=== PATIENT | male | born 1990 | race Caucasian/White ===

== ENCOUNTER 2018-08-23 15:55 | Emergency (ER) | payer OTHER ==
[2018-08-23 16:16] VITALS: BP 117/67; PULSE 61; RESP 20; TEMP 98; O2SAT 97
--- NOTE | 2018-08-23 16:49 | C.PDOC ---
History Of Present Illness 28 year old male, with no significant past medical history, presents to the ED for evaluation of a puncture wound to his right foot which he sustained 2 hours ago. Patient states he accidentally stepped onto a nail, which punctured through his sneaker and foot. Patient is unsure of his tetanus immunization status. He denies numbness/tingling to the area or any other injuries at this time. Time Seen by Provider: 08/23/18 16:15 Chief Complaint (Nursing): Abnormal Skin Integrity History Per: Patient History/Exam Limitations: no limitations Onset/Duration Of Symptoms: Hrs Current Symptoms Are (Timing): Still Present Location Of Injury: Right: Foot Quality Of Symptoms: Painful Additional History Per: Patient Past Medical History Reviewed: Historical Data, Nursing Documentation, Vital Signs Vital Signs: Last Vital Signs Temp 98 F 08/23/18 16:04 Pulse 61 08/23/18 16:04 Resp 20 08/23/18 16:04 BP 117/67 08/23/18 16:04 Pulse Ox 97 08/23/18 16:04 - Medical History PMH: No Chronic Diseases Surgical History: No Surg Hx Family History: States: Unknown Family Hx - Social History Hx Alcohol Use: No Hx Substance Use: No - Immunization History Hx Tetanus Toxoid Vaccination: No Hx Influenza Vaccination: No Hx Pneumococcal Vaccination: No Review Of Systems Except As Marked, All Systems Reviewed And Found Negative. Constitutional: Negative for: Fever, Chills Eyes: Negative for: Vision Change Cardiovascular: Negative for: Chest Pain, Palpitations Respiratory: Negative for: Cough, Shortness of Breath Gastrointestinal: Negative for: Nausea, Vomiting Musculoskeletal: Positive for: Foot Pain (right). Negative for: Neck Pain, Shoulder Pain, Arm Pain, Back Pain, Hand Pain Skin: Positive for: Other (puncture wound right foot). Negative for: Rash, Bruising Neurological: Negative for: Weakness, Numbness Physical Exam - Physical Exam Appears: Well, Non-toxic, No Acute Distress Skin: Normal Color, Warm, Dry, Other (puncture wound to plantar aspect of right foot. no active bleeding ) Head: Atraumatic, Normacephalic Eye(s): bilateral: Normal Inspection, PERRL, EOMI Oral Mucosa: Moist Neck: Normal, Supple Cardiovascular: Rhythm Regular Respiratory: Normal Breath Sounds Extremity: Normal ROM, Tenderness (over puncture wound), Capillary Refill (less than 2 seconds ), No Deformity, No Swelling, Other (small puncture wound to plantar surface of right foot; no active bleeding) Extremity: Left: Atraumatic, Bilateral: No Pedal Edema, Normal Color And Temperature, Normal ROM Pulses: Left Dorsalis Pedis: Normal, Right Dorsalis Pedis: Normal Neurological/Psych: Oriented x3, Normal Speech, Normal Cognition, Normal Motor, Normal Sensation Gait: Steady (without assistance) ED Course And Treatment O2 Sat by Pulse Oximetry: 97 (on RA) Pulse Ox Interpretation: Normal - Other Rad Right foot XR X-Ray: Viewed By Me, Read By Radiologist Interpretation: PROCEDURE: Right foot Radiographs. HISTORY: nail puncture to bottom of foot. r/o FB. COMPARISON: None available. FINDINGS: BONES: No acute displaced fracture. JOINTS: No dislocation. SOFT TISSUES: No evidence of radiopaque foreign body. OTHER FINDINGS: None. IMPRESSION: No evidence of radiopaque foreign body. Progress Note: Right foot XR ordered and reviewed. Cipro PO, Keflex PO, and Tetanus IM administered. Medical Decision Making Medical Decision Making: Initial Plan: * Right foot XR * TDaP * Keflex * Cipro Right foot XR: negative for FB, fracture, or dislocation Wound cleaned and dressed by nursing. Plan of care discussed with patient, and strict instructions given regarding prescriptions, importance of follow up, and signs to return to Emergency Department, to include signs of wound infection, fevers, chills, worsening pain, or any other new/worsening symptoms. Patient verbalizes understanding of discussion. Patient A&Ox3, ambulating with steady gait, stable for discharge home. Disposition Counseled Patient/Family Regarding: Studies Performed, Diagnosis, Need For Followup, Rx Given - Disposition Referrals: Podiatry Clinic [Outside] Disposition: HOME/ ROUTINE Disposition Time: 17:00 Condition: IMPROVED Additional Instructions: Mantenga la herida limpia, seca y cubierta Riva Keflex cada 8 horas blair 7 sahni Riva ciprofloxacina cada 12 horas blair 7 sahni Seguimiento con el mdico de cabecera dentro de 2 sahni Volver a ER para cualquier nuevo/empeoramiento de los sntomas Prescriptions: Cephalexin [Keflex] 500 mg PO Q8H 7 Days #21 capsule Ciprofloxacin [Cipro] 500 mg PO Q12H #14 tab Instructions: Wound Care (DC) Forms: Work Excuse, Gen Discharge Inst Greenlandic, Lulu (Greenlandic) - Clinical Impression Clinical Impression: Puncture wound - PA / [employer] / Resident Statement MD/DO has reviewed & agrees with the documentation as recorded. - Scribe Statement The provider has reviewed the documentation as recorded by the Scribe (Ann Morris) All medical record entries made by the Scribe were at my direction and personally dictated by me. I have reviewed the chart and agree that the record accurately reflects my personal performance of the history, physical exam, medical decision making, and the department course for this patient. I have also personally directed, reviewed, and agree with the discharge instructions and disposition.
[2018-08-23] MEDS ORDERED: Tdap Vaccine 0.5 ml Vial (10-64 yrs) IM ONE ×2 (17:10→17:57)
--- NOTE | 2018-08-23 17:16 | RAD ---
PROCEDURE: Right foot Radiographs. HISTORY: nail puncture to bottom of foot. r/o FB COMPARISON: None available. FINDINGS: BONES: No acute displaced fracture. JOINTS: No dislocation. SOFT TISSUES: No evidence of radiopaque foreign body. OTHER FINDINGS: None. IMPRESSION: No evidence of radiopaque foreign body.
[2018-08-23] MEDS ORDERED: Tmp-Smz 800 mg-160 mg DS Tab ONE (17:56)
== END 2018-08-23 18:04 | disposition home or self-care (01) ==
LOC: C.ER 15:55
DX: S91.331A Puncture wound without foreign body, right foot, initial encounter (principal); W45.0XXA Nail entering through skin, initial encounter